=== PATIENT | male | born 1985 | race Two or more races ===

== ENCOUNTER → 2017-03-04 | Outpatient (CLI) | payer OTHER ==
--- NOTE | ~2017-03-04 | CR230 ---
[facility] A Service of [facility] RADIOLOGY TEXT RESULTS PATIENT: JUICE WREN LOCATION: [facility] : 89 UNIT #: [id number] AGE: [address]: BRYCE HAMPTON APRN SEX: M ORDER DR: [id number] [address] [address] [id number] O MR#: [id number] Acc #: [id number] NAME: JUICE WREN : 1985 SEX: M STUDY DATE/TIME: 03/04/2017 13:32 UNIT: [facility] ROOM: STUDY DESCRIPTION: CR Shoulder Min 2 View Rt Ordering Physician: Bryce Hampton A.P.R.N. MEDICAL IMAGING REPORT This report is preliminary unless electronic signature is present EXAM Right shoulder 03/04/2017 INDICATIONS 31-year-old male with right-sided shoulder pain. Pain in both shoulders, left worse than right. Symptoms for the past month and a half. No known injury. TECHNIQUE 3 views right shoulder. COMPARISON STUDIES No comparisons. FINDINGS There is no acute fracture, shoulder separation or dislocation. No significant degenerative change. IMPRESSION 1. Negative. Dictated by... Son France M.D. THIS IS AN ELECTRONICALLY VERIFIED REPORT Son France M.D. at 03/04/2017 4:57 PM JACKSON/jaziel TD: 03/04/2017 15:14 JOB #: [id number] [facility] A Service of [facility] RADIOLOGY TEXT RESULTS PATIENT: JUICE WREN [facility] [id number] : [birth year] UNIT #: [id number] AGE: [address]: BRYCE HAMPTON APRN SEX: M ORDER DR: MEDICAL IMAGING REPORT Page 1 of 1 COPY
--- NOTE | ~2017-03-04 | CR229 ---
[facility] A Service of [facility] RADIOLOGY TEXT RESULTS PATIENT: JUICE WREN LOCATION: [facility] : 89 UNIT #: [id number] AGE: [address]: BRYCE HAMPTON APRN SEX: M ORDER DR: [id number] [facility] [address] [place], [place] [address] [id number] O MR#: [id number] Acc #: [id number] NAME: JUICE WREN : 1985 SEX: M STUDY DATE/TIME: 03/04/2017 13:36 UNIT: [facility] ROOM: STUDY DESCRIPTION: CR Shoulder Min 2 View Lt Attending Physician: Bryce Hampton A.P.R.N. Referring Physician: Bryce Hampton A.P.R.N. Ordering Physician: Bryce Hampton A.P.R.N. Primary Care Physician: Bryce Hampton A.P.R.N. MEDICAL IMAGING REPORT This report is preliminary unless electronic signature is present EXAM Left shoulder HISTORY Shoulder pain for the past 1-1/2 months. TECHNIQUE 3 views of the shoulder were obtained. FINDINGS AP view with internal and external rotation of the shoulder girdle shows satisfactory relationship of the humeral head and glenoid fossa. The joint space is normal. There is no identifiable fracture or dislocation or bony destructive process about the shoulder girdle anatomy. The acromioclavicular joint is normal. There is no radiopaque foreign body in the region. IMPRESSION Normal shoulder. Dictated by... Lucas Garza M.D. THIS IS AN ELECTRONICALLY VERIFIED REPORT Lucas Garza M.D. at 03/04/2017 6:21 PM MAX/kristen TD: 03/04/2017 14:14 JOB #: [id number] MEDICAL IMAGING REPORT Page 1 of 1 COPY
== END | disposition home or self-care (01) ==
LOC: CRAD 13:02
DX: M25.512 Pain in left shoulder (principal)
CPT/HCPCS: 73030